=== PATIENT | female | born 1955 | race Caucasian/White ===

== ENCOUNTER → 2017-05-10 | Outpatient (CLI) | payer BC ==
--- NOTE | 2017-05-10 11:07 | US ---
HISTORY: Abdominal pain. Study: Complete abdominal ultrasound. Comparison: None. Technique: Multiple baptiste scale and color flow Doppler images of the abdomen were obtained. Findings: The liver is slightly echogenic in echotexture. No intraparenchymal mass or intrahepatic biliary elba rolan dilatation can be identified. The gallbladder is unremarkable in its appearance. The common jenni e duct is normal measuring 3 mm. The portal vein is patent with appropriate flow, as is the hepatic a rtery. Hepatic veins also appear patent. The visualized portions of the pancreas and spleen are lashonda l in their echotexture and size. The right and left kidney are normal in echotexture and size. The ri ght kidney measures 9 x 6 x 5 cm. The left kidney measures 9 x 6 x 5 cm. No mass, hydronephrosis, or stone can be identified. The visualized portions of the abdominal aorta are normal in size without an eurysmal dilatation. The inferior vena cava is unremarkable as well. No ascites or loculated abdomin al fluid collection is evident. IMPRESSION: Liver is slightly echogenic/fatty in appearance. Unremarkable gallbladder. No other abdominal sonographic abnormality is seen. No ascites is seen. Reported By:
== END ==
LOC: RAD 09:09
PROVIDERS: ATTEND Internal Medicine Gastroenterology
DX: R79.89 Other specified abnormal findings of blood chemistry (principal); R94.5 Abnormal results of liver function studies
CPT/HCPCS: 76700

== ENCOUNTER 2020-01-20 10:06 | Inpatient (IN) ==
[2020-01-20 10:19] VITALS: BMI 28.3
--- NOTE | 2020-01-20 10:49 | DR.DIZZY ---
HPI Time seen Time Seen by Provider: 01/20/20 10:22 PCP Primary Care Physician: LISHA Complaint Chief Complaint Doctor Comments: Patient chief complaint of diarrhea , achy and difficulty sleeping. Eating well and drinking but it goes straight through. Chief Complaint:: [facility] CALLED, PT WANTED TO COME TO [facility], INSTEAD OF [facility]. PT WAS TESTED POSITIVE LAST WEEK FOR COVID 19 POSITIVE. PT FAILED OUTPT TREATMENT AND PRESENTED BACK TO [facility] WITH TEMP OF 101.5, NAUSEA, DIARRHEA AND BODY ACHES. Self Treatment fo Chief Complaint: PT TOOK Z-PACK, DECADRON, ROCEPHIN IN OFFICE, MUCINEX, WITH SEVERAL BREATHING TX, Nurses Notes Reviewed Nurses Notes Review: Yes Source History Provided: Patient Mode of Arrival Mode of Arrival: Ambulatory Timing Onset of Chief Complaint: 01/15/20 Came on: Gradually Symptom Onset: Known Onset of Symptoms Start Date: 01/13/20 Duration Duration: Intermittent How lon Duration: Days Location of Weakness Weakness Location: Generalized Context History of: None Stroke Symptoms: None Severity Severity: Abnormal activity level Modifying factors Worsens: Nothing Associated signs and symptoms Associated Signs and Symptoms: Headache, Nausea and Other (diarrhea) PMH PMH Past Medical History: Yes Past Medical History: GERD and Hypertension Past Surgical History: Yes Surgical History: Hysterectomy and Other Past Surgical History Comment: BLADDER TACT Family History History of Family Medical Conditions: Yes Family Medical History: Sudden Cardiac Social History Does any household member use tobacco: No Alcohol Use: Occasionally Do you use any recreational Drugs:: No Lives With: Alone Lives Where: Home Infectious screening In the last 2 months have you had wt loss of >10#?: NO Have you had fever, night sweats or hemotysis?: No Have you traveled outside the country in the last 6 months?: No Isolation: Droplet ROS Review of Systems Constitutional: Fever and Weakness Eyes: No Symptoms Reported ENTM: No Symptoms Reported Respiratoy: No Symptoms Reported Gastrointestinal/Abdominal: Diarrhea and Nausea Genitourinary: No Symptoms Reported Neurological: No Symptoms Reported Musculoskeletal: Muscle Pain Integumentary: No Symptoms Reported Hematologic/Lymphatic: No Symptoms Reported Endocrine: No Symptoms Reported Psychiatric: Anxiety All Other Systems: Reviewed and Negative PE Vital Signs Vitals: Temperature 98.9 F Pulse Rate 79 Respiratory Rate 20 Blood Pressure 128/107 O2 Sat by Pulse Oximetry 95 General Limitations: No Limitations General Appearance: Alert and In No Apparent Distress Head Head Exam: Normal Inspection, Atraumatic and Normocephalic Eyes Eye exam: Normal Appearance and EOMI Pupils: Regular, Round: Bilateral Sclera/Conjunctival: Normal Inspection: Bilateral ENT ENT Exam: Normal Exam and Normal Oropharynx Neck Neck Exam: Normal Inspection, Full ROM and Trachea Midline Respiratory Respiratory Exam: Normal Lung Sounds Bilat Respiratory Exam: Bilateral: Clear to Auscultation Cardiovascular Cardiovascular Exam: Regular Rate Abdominal Exam Abdominal Exam: Normal Inspection and Normal Bowel Sounds Rectal Rectal Exam: Deferred Extremeties Extremities Exam: Normal Inspection and Full ROM Back Back Exam: Normal Inspection and Full ROM Neurologic Neurological Exam: Alert, Oriented X3, CN II-XII Intact and Normal Gait Patient Oriented To: Person, Place and Time Cranial Nerve Exam: EOM Function (II, III, IV, ): Normal Psychiatric Psychiatric Exam: Depressed Skin Skin Exam: Normal Color COURSE Consultation Called: 12:39 Call Returned: 12:45 Consultation Comments: case discussed with DR. Barrientos admit for Covid19 niesha tment and potassium replacement ROR Labs Reviewed Result Diagrams: 01/20/20 11:15 01/20/20 11:15 Laboratory: WBC 3.9 X10^3/uL (3.6-10.0) 01/20/20 11:15 RBC 4.68 X10^6/uL (3.5-5.4) 01/20/20 11:15 Hgb 14.1 g/dL (12.0-16.0) 01/20/20 11:15 Hct 40.7 % (36.0-47.0) 01/20/20 11:15 MCV 86.9 fL (80.0-100.0) 01/20/20 11:15 MCH 30.0 pg (27.0-34.0) 01/20/20 11:15 MCHC 34.6 g/dL (33.0-35.0) 01/20/20 11:15 RDW 13.4 % (11.6-16.5) 01/20/20 11:15 Plt Count 107 X10^3/uL (150.0-450.0) L 01/20/20 11:15 MPV 9.2 fL (7.4-11.0) 01/20/20 11:15 Neut % (Auto) 60.7 % (42.0-75.0) 01/20/20 11:15 Lymph % (Auto) 30.2 % (21.0-51.0) 01/20/20 11:15 [place] % (Auto) 8.9 % (0.0-13.0) 01/20/20 11:15 Eos % (Auto) 0.1 % (0.9-2.9) L 01/20/20 11:15 Baso % (Auto) 0.1 % (0.2-1.0) L 01/20/20 11:15 Neut # (Auto) 2.4 x10^3/uL (2.2-4.8) 01/20/20 11:15 Lymph # (Auto) 1.2 X10^3/uL (1.3-2.9) L 01/20/20 11:15 [place] # (Auto) 0.3 x10^3/uL (0.3-0.8) 01/20/20 11:15 Eos # (Auto) 0.0 x10^3/uL (0.0-0.2) 01/20/20 11:15 Baso # (Auto) 0.0 X10^3/uL (0.0-0.1) 01/20/20 11:15 Absolute Nucleated RBC 0.1 /100WBC 01/20/20 11:15 Sodium 137 mmol/L (136-145) 01/20/20 11:15 Corrected Sodium TNP 01/20/20 11:15 Potassium 2.8 mmol/L (3.5-5.1) L* 01/20/20 11:15 Chloride 100 mmol/L (98-107) 01/20/20 11:15 Carbon Dioxide 29.7 mmol/L (21-32) 01/20/20 11:15 BUN 12 mg/dL (7-18) 01/20/20 11:15 Creatinine 0.85 mg/dL (0.55-1.02) 01/20/20 11:15 Est GFR (MDRD) Af Amer > 60 (>60) 01/20/20 11:15 Est GFR (MDRD) Non-Af > 60 (>60) 01/20/20 11:15 Glucose 84 mg/dL (65-99) 01/20/20 11:15 Calcium 8.7 mg/dL (8.5-10.1) 01/20/20 11:15 Corrected Calcium TNP 01/20/20 11:15 Total Bilirubin 0.40 mg/dL (0.2-1.0) 01/20/20 11:15 AST 21 Units/L (15-37) 01/20/20 11:15 ALT 30 Units/L (12-78) 01/20/20 11:15 Alkaline Phosphatase 101 Units/L (46-116) 01/20/20 11:15 C-Reactive Protein 20.40 mg/L (0-3.0) H 01/20/20 11:15 Total Protein 7.2 g/dL (6.4-8.2) 01/20/20 11:15 Albumin 3.5 g/dL (3.4-5.0) 01/20/20 11:15 Globulin 3.7 g/dL (2.5-4.5) 01/20/20 11:15 Albumin/Globulin Ratio 0.9 Ratio (1.1-2.1) L 01/20/20 11:15 Lipase 184 Units/L (73-393) 01/20/20 11:15 Specimen Type Clean catch urine 01/20/20 11:00 Urine Color Yellow (YELLOW) 01/20/20 11:00 Urine Appearance Slightly hazy (CLEAR) 01/20/20 11:00 Urine pH 6.0 (5.0 - 8.0) 01/20/20 11:00 Ur Specific [place] 1.015 (1.000-1.030) 01/20/20 11:00 Urine Protein 1+ (NEGATIVE) 01/20/20 11:00 Urine Glucose (UA) Negative (NEGATIVE) 01/20/20 11:00 Urine Ketones Negative (NEGATIVE) 01/20/20 11:00 Urine Occult Blood 1+ (NEGATIVE) 01/20/20 11:00 Urine Nitrite Negative (NEGATIVE) 01/20/20 11:00 Urine Bilirubin Negative (NEGATIVE) 01/20/20 11:00 Urine Urobilinogen Normal (NORMAL) 01/20/20 11:00 Ur Leukocyte Esterase 1+ (NEGATIVE) 01/20/20 11:00 Urine RBC 0-2 /HPF (0-3) 01/20/20 11:00 Urine WBC 0-2 /HPF (0-5) 01/20/20 11:00 Ur Squamous Epith Cells Rare /HPF (NEGATIVE) 01/20/20 11:00 Ur Renal Epithelial Cell Few /HPF (NEGATIVE) 01/20/20 11:00 Amorphous Sediment Trace /HPF (NEGATIVE) 01/20/20 11:00 Urine Bacteria Trace /HPF (NEGATIVE) 01/20/20 11:00 Ur Culture Indicated? No/not indicated 01/20/20 11:00 Opioid Opioid Risk Tool Total: 0 Total Score Risk Category: Low Risk Copyright: [facility] predicting aberrant behaviors Diagnosis Discharge Problem: Pneumonia due to 2019 novel coronavirus
[2020-01-20] MEDS ORDERED: TORADOL 30 MG VIAL IVP ONE (10:51)
[2020-01-20] MEDS ORDERED: ZOFRAN INJ 4 MG VIAL ONE (10:59)
[2020-01-20] MEDS ORDERED: TORADOL 30 MG VIAL ONE (10:59)
[2020-01-20] MEDS ORDERED: NS 1000 ML 1,000 ML ONE (10:59)
[2020-01-20] MEDS ORDERED: NS 1000 ML 1,000 ML IV SCH (11:00)
[2020-01-20] MEDS: ZOFRAN INJ 4 MG VIAL IVP PRN ×2 (11:22→19:37)
[2020-01-20 11:48] LABS: BASOPHILS % (AUTO) 0.1 % (0.2-1.0); EOSINOPHILS % (AUTO) 0.1 % (0.9-2.9); HEMATOCRIT 40.7 % (36.0-47.0); HEMOGLOBIN 14.1 g/dL (12.0-16.0); LYMPHOCYTES # (AUTO) 1.2 X10^3/uL (1.3-2.9); LYMPHOCYTES % (AUTO) 30.2 % (21.0-51.0); MEAN CORPUSCULAR HGB CONC 34.6 g/dL (33.0-35.0); MEAN CORPUSCULAR VOLUME 86.9 fL (80.0-100.0); MEAN PLATELET VOLUME 9.2 fL (7.4-11.0); MONOCYTES # (AUTO) 0.3 x10^3/uL (0.3-0.8); MONOCYTES % (AUTO) 8.9 % (0.0-13.0); NEUTROPHILS # (AUTO) 2.4 x10^3/uL (2.2-4.8); NEUTROPHILS % (AUTO) 60.7 % (42.0-75.0); PLATELET COUNT 107 X10^3/uL (150.0-450.0); RED BLOOD COUNT 4.68 X10^6/uL (3.5-5.4); RED CELL DISTRIBUTION WIDTH 13.4 % (11.6-16.5); WHITE BLOOD COUNT 3.9 X10^3/uL (3.6-10.0)
[2020-01-20 11:56] LABS: BILIRUBIN,URINE NEGATIVE (NEGATIVE); BLOOD/HEMOGLOBIN,URINE 1+ (NEGATIVE); GLUCOSE, URINE NEGATIVE (NEGATIVE); KETONES,URINE NEGATIVE (NEGATIVE); LEUKOCYTE ESTERASE ,URINE 1+ (NEGATIVE); NITRITES,URINE NEGATIVE (NEGATIVE); PROTEIN,URINE 1+ (NEGATIVE); UROBILINOGEN,URINE NORMAL (NORMAL)
--- NOTE | 2020-01-20 11:56 | RAD ---
HISTORYCOVID +CP AND ABD PAIN PMH: HTN.br BLADDER MESH, MESH REMOVALSTUDYACUTE ABDOMEN SERIESCOMPARISONNoneFINDINGSThe trachea is midline. The cardiac silhouette is [unremarkable]. [The lungs demonstrate some hazy opacities throughout the peripheral aspects lung which may be due to history of COVID-19 without focal mass or consolidation. There is no effusion or pneumothorax.] [The bony thorax is unremarkable].Flat plate and upright evaluation of the abdomen demonstrates a [normal bowel gas pattern]. There is no pneumoperitoneum. No pathological soft tissue mass or calcification can be observed. The bony structures are grossly intact.IMPRESSION1. [Hazy peripheral opacities throughout both lungs which may be due to a COVID given the history.2. [No evidence for acute abdominal pathology identified.]Electronically signed by: GEOFF REAVES (Jan 20, 2020 11:54:26)
[2020-01-20 11:58] LABS: BLOOD UREA NITROGEN 12 mg/dL (7-18); CALCIUM 8.7 mg/dL (8.5-10.1); CARBON DIOXIDE 29.7 mmol/L (21-32); CHLORIDE 100 mmol/L (98-107); CREATININE 0.85 mg/dL (0.55-1.02); SODIUM 137 mmol/L (136-145); eGFR NON BLACK RACES > 60 (>60)
[2020-01-20 12:02] LABS: AMORPHOUS SEDIMENT,UR TRACE /HPF (NEGATIVE); APPEARANCE,URINE SLIGHTLY HAZY (CLEAR); BACTERIA,URINE TRACE /HPF (NEGATIVE); COLOR,URINE YELLOW (YELLOW); RBC,URINE 0-2 /HPF (0-3); RENAL EPITHELIAL CELLS,URINE FEW /HPF (NEGATIVE); SQUAMOUS EPITHELIAL CELL,UR RARE /HPF (NEGATIVE)
[2020-01-20 12:02] LABS: ALANINE AMINOTRANSFERASE 30 Units/L (12-78); ALBUMIN 3.5 g/dL (3.4-5.0); ALKALINE PHOSPHATASE 101 Units/L (46-116); ASPARTATE AMINO TRANSFERASE 21 Units/L (15-37); LIPASE 184 Units/L (73-393); TOTAL PROTEIN 7.2 g/dL (6.4-8.2)
[2020-01-20] MEDS ORDERED: K-RIDER 10 MEQ/NS 100 ML 10 MEQ/100 ML BAG IV ONE ×2 (12:13→12:19)
[2020-01-20] MEDS ORDERED: POTASSIUM CHLORIDE LIQ 20 MEQ UDC PO ONE (12:13)
[2020-01-20] MEDS ORDERED: KLOR-CON ONE (12:18)
[2020-01-20] MEDS ORDERED: KLOR-CON PO ONE (12:36)
[2020-01-20] MEDS ORDERED: REMDESIVIR 200 MG in NS 250 ML IV 250 ML IV SCH ×2 (14:00→19:00)
[2020-01-20] MEDS: ZINC SULFATE PO SCH ×2 (16:00→20:33)
[2020-01-20] MEDS: TRICOR TAB 160 MG PO SCH (16:00)
[2020-01-20] MEDS: VITAMIN D (1.25MG) PO SCH (16:00)
[2020-01-20] MEDS: PLAQUENIL PO SCH ×2 (16:00→20:33)
[2020-01-20] MEDS: ASCORBIC ACID INJ MULTI-DOSE VIAL 1,500 MG in NS 100 ML IV 100 ML IV SCH ×3 (16:00→21:13)
[2020-01-20] MEDS: DECADRON TAB PO SCH (16:00)
[2020-01-20] MEDS: VITAMIN A PO SCH (16:00)
[2020-01-20] MEDS: LOVENOX INJ 30 MG SYR SC SCH ×2 (16:12→20:33)
[2020-01-20] MEDS: NS 1000 ML 1,000 ML IV SCH (16:14)
[2020-01-20] MEDS: PROVENTIL NEB TX 0.083% 2.5MG/ 3ML NEB SCH ×2 (16:55→20:30)
--- NOTE | 2020-01-20 18:51 | DR.H&P ---
H&P - History & Physical for Day of: H&P Date: 01/20/20 - Chief Complaint Chief Complaint: COVID 19+, WEAKNESS, DIARRHEA - History of Present Illness History of Present Illness: PT IS 64F ADMITTED WITH COVID 19 PNEUMONIA AND COMPLICATION OF DEHYDRATION AND DIARRHEA. PT HAD PNEUMONIA ON ER CXR. PT HAD PMH OF HYPERTENSION. PT ADMITTED FOR TREATMENT OF ACUTE ILLNESS, ICU ISOLATION. - Past Medical History Past Medical History: Hypertension, GERD - Past Surgical History Surgical History: [employer] Surgery, Hysterectomy, Other - Family History Family Medical History: Cancer, DC, Heart Failure, Hypertension - Social History Does patient currently use any type of tobacco product: No Have you used tobacco products in the last 12 months: No Type of Tobacco Use: None Does any household member use tobacco: No Alcohol Use: None Drug Use: Prescription Drugs - Medications Home Medications: metoclopramide [From Reglan] Allergy (Verified 01/20/20 10:19) CONTINUE taking the following medications albuterol sulfate 2 inh INHALATION Q4HHR 01/20/20 [History] benzonatate 200 mg PO TID 01/20/20 [History] budesonide [Pulmicort Flexhaler] 1 inh INHALATION BID 01/20/20 [History] dexamethasone 6 mg PO DAILY 01/20/20 [History] hydrochlorothiazide 25 mg PO DAILY 01/20/20 [History] lansoprazole 30 mg PO DAILY 01/20/20 [History] losartan 100 mg PO DAILY 01/20/20 [History] ondansetron 4 mg PO QID PRN 01/20/20 [History] potassium chloride 10 meq PO DAILY 01/20/20 [History] zolpidem 10 mg PO HS PRN 01/20/20 [History] - Review of Systems Constitutional: Fever, Weakness, Malaise Eyes: No Symptoms Reported ENT: No Symptoms Reported Respiratory: SOB with Excertion Cardiovascular: No Symptoms Reported Gastrointestinal: Nausea, Vomiting, Diarrhea Genitourinary: No Symptoms Reported Musculoskeletal: Back Pain Skin: No Symptoms Reported Neurological: Weakness - Physical Exam Vital Signs: Temperature 100.3 F Pulse Rate [Right] 72 Pulse Rate 69 Respiratory Rate 20 Blood Pressure [Right Arm] 148/72 Blood Pressure 147/77 O2 Sat by Pulse Oximetry 98 Oriented: Normal Eyes: Normal Ear: Normal Nose: Normal Throat: Normal Respiratory: RLL Diminished, LLL Diminished Cardiovascular: Normal : Normal Auscultation: Bowel Sounds: Normal Palpation: Normal Tenderness: Normal Skin: Decreased Turgur Musculoskeletal: Back:Lumbar Psychiatric: Anxiety Affect: Anxious Speech Pattern: Clear, Appropriate - Assessment/Plan (1) Pneumonia due to 2019 novel coronavirus Status: Acute Plan: ADMIT, COVID 19 ISOLATION. IV HYDRATION, BC AND SPUTUM CULTURE ON ADMISSION. CXR, ABG ON ADMISSION. VERIFY HOME MEDICATION, RESP THERAPY. CARDIAC MONITORING, IV ABTX, IV REMDESIVIR (2) Dehydration Status: Acute (3) Hypertension Status: Acute - Allergies Allergies/Adverse Reactions: Allergies Allergy/AdvReac Type Severity Reaction Status Date / Time metoclopramide [From Reglan] Allergy Verified 01/20/20 10:19
[2020-01-20] MEDS ORDERED: POTASSIUM CHLORIDE LIQ 20 MEQ UDC PO PRN (18:56)
[2020-01-20] MEDS ORDERED: K-RIDER 10 MEQ/NS 100 ML 10 MEQ/100 ML BAG IV PRN (18:56)
[2020-01-20] MEDS ORDERED: POTASSIUM CHL 60 MEQ/NS 0.45% 500 ML IV PRN (18:56)
[2020-01-20] MEDS ORDERED: POTASSIUM CHL 40 MEQ/NS 0.45% 500 ML IV PRN (18:56)
[2020-01-20] MEDS ORDERED: KLOR-CON PO PRN (18:56)
[2020-01-20] MEDS ORDERED: MICRO K EXTEN CAP 10 MEQ PO PRN (18:56)
[2020-01-20] MEDS ORDERED: ZOFRAN INJ 4 MG VIAL IVP PRN (19:08)
[2020-01-20] MEDS: TYLENOL 325 MG TAB PO PRN (19:09)
[2020-01-20] MEDS: ZOSYN VIAL 3.375 GRAMS 3.375 G in NS 100 ML IV + SPIKE MINIBAG* 100 ML IV SCH ×2 (19:37→21:13)
[2020-01-20] MEDS: ZITHROMAX INJ 500 MG VIAL 500 MG in NS 250 ML IV 250 ML IV SCH (19:37)
[2020-01-20 20:23] LABS: ABG BASE EXCESS -1.6 mmol/L (-2.0-2.0); ABG HCO3 21.1 mmol/L (22-26)
[2020-01-20] MEDS: PULMICORT NEB TX 0.5 MG NEB SCH (20:30)
[2020-01-20] MEDS: K-DUR TAB 20 MEQ PO PRN (21:13)
[2020-01-21] MEDS: ASCORBIC ACID INJ MULTI-DOSE VIAL 1,500 MG in NS 100 ML IV 100 ML IV SCH ×4 (03:17→21:00)
[2020-01-21] MEDS: ZOSYN VIAL 3.375 GRAMS 3.375 G in NS 100 ML IV + SPIKE MINIBAG* 100 ML IV SCH ×3 (05:47→22:00)
[2020-01-21 06:09] LABS: BASOPHILS % (AUTO) 0.1 % (0.2-1.0); HEMATOCRIT 38.1 % (36.0-47.0); HEMOGLOBIN 13.3 g/dL (12.0-16.0); LYMPHOCYTES # (AUTO) 0.5 X10^3/uL (1.3-2.9); LYMPHOCYTES % (AUTO) 17.8 % (21.0-51.0); MEAN CORPUSCULAR HEMOGLOBIN 30.5 pg (27.0-34.0); MEAN CORPUSCULAR HGB CONC 34.8 g/dL (33.0-35.0); MEAN CORPUSCULAR VOLUME 87.6 fL (80.0-100.0); MEAN PLATELET VOLUME 8.8 fL (7.4-11.0); MONOCYTES # (AUTO) 0.2 x10^3/uL (0.3-0.8); MONOCYTES % (AUTO) 7.8 % (0.0-13.0); NEUTROPHILS # (AUTO) 1.9 x10^3/uL (2.2-4.8); NEUTROPHILS % (AUTO) 74.3 % (42.0-75.0); PLATELET COUNT 101 X10^3/uL (150.0-450.0); RED BLOOD COUNT 4.35 X10^6/uL (3.5-5.4); RED CELL DISTRIBUTION WIDTH 13.4 % (11.6-16.5); WHITE BLOOD COUNT 2.6 X10^3/uL (3.6-10.0)
[2020-01-21 06:32] LABS: ALANINE AMINOTRANSFERASE 35 Units/L (12-78); ALBUMIN 3.1 g/dL (3.4-5.0); ALKALINE PHOSPHATASE 98 Units/L (46-116); ASPARTATE AMINO TRANSFERASE 28 Units/L (15-37); BLOOD UREA NITROGEN 11 mg/dL (7-18); CALCIUM 8.7 mg/dL (8.5-10.1); CARBON DIOXIDE 24.2 mmol/L (21-32); CHLORIDE 106 mmol/L (98-107); COR CA(FOR HYPOALB) 9.4 mg/dL (8.5-10.1); COR NA(FOR HYPERGLY) 142 mmol/L (136-145); CREATININE 0.71 mg/dL (0.55-1.02); SODIUM 142 mmol/L (136-145); TOTAL PROTEIN 6.8 g/dL (6.4-8.2); eGFR NON BLACK RACES > 60 (>60)
[2020-01-21] MEDS: TYLENOL 325 MG TAB PO PRN (08:00)
[2020-01-21] MEDS: PULMICORT NEB TX 0.5 MG NEB SCH ×2 (08:15→21:10)
[2020-01-21] MEDS: PROVENTIL NEB TX 0.083% 2.5MG/ 3ML NEB SCH ×4 (08:15→21:10)
[2020-01-21] MEDS: ZOFRAN INJ 4 MG VIAL IVP PRN (08:24)
[2020-01-21] MEDS: PLAQUENIL PO SCH ×2 (08:24→21:59)
[2020-01-21] MEDS: DECADRON TAB PO SCH (08:24)
[2020-01-21] MEDS: TRICOR TAB 160 MG PO SCH (08:25)
[2020-01-21] MEDS: VITAMIN A PO SCH (08:26)
[2020-01-21] MEDS: VITAMIN D (1.25MG) PO SCH (08:26)
[2020-01-21] MEDS: LOVENOX INJ 30 MG SYR SC SCH ×2 (08:27→21:59)
[2020-01-21] MEDS: ZINC SULFATE PO SCH ×2 (08:39→21:59)
[2020-01-21] MEDS ORDERED: REMDESIVIR 100 MG in NS 250 ML IV 250 ML IV SCH (09:00)
[2020-01-21] MEDS: REMDESIVIR 100 MG in NS 250 ML IV 250 ML IV SCH (09:51)
[2020-01-21] MEDS: ZITHROMAX INJ 500 MG VIAL 500 MG in NS 250 ML IV 250 ML IV SCH (11:21)
--- NOTE | 2020-01-21 11:27 | RAD ---
HISTORYCOVID PNEUMONIASTUDYCHEST, 1 [id number] trachea is midline. Normal heart size. There is again seen some areas of increase of the interstitial markings in the left base and in the left midlung zone. No new dominant infiltrate in the right. No effusions. No evidence of pneumothorax.IMPRESSIONNo interval change. Stable patchy increase of the interstitial markings in the left lower lobe and left midlung zones suspicious for viral pneumonia.Electronically signed by: Naomi Montalvo (Jan 21, 2020 11:26:21)
[2020-01-21] MEDS: LOMOTIL PO PRN ×2 (11:29→21:00)
[2020-01-21] MEDS: NS 1000 ML 1,000 ML IV SCH (14:12)
[2020-01-21] MEDS ORDERED: ROBITUSSIN DM PO PRN (19:04)
[2020-01-21] MEDS ORDERED: TUSSIONEX PENNKINETIC SUSP PO PRN (19:04)
[2020-01-22] MEDS: ASCORBIC ACID INJ MULTI-DOSE VIAL 1,500 MG in NS 100 ML IV 100 ML IV SCH ×4 (03:00→21:00)
[2020-01-22 05:40] LABS: BASOPHILS % (AUTO) 0.1 % (0.2-1.0); HEMATOCRIT 37.2 % (36.0-47.0); HEMOGLOBIN 12.5 g/dL (12.0-16.0); LYMPHOCYTES # (AUTO) 0.8 X10^3/uL (1.3-2.9); LYMPHOCYTES % (AUTO) 20.7 % (21.0-51.0); MEAN CORPUSCULAR HEMOGLOBIN 30.2 pg (27.0-34.0); MEAN CORPUSCULAR HGB CONC 33.7 g/dL (33.0-35.0); MEAN CORPUSCULAR VOLUME 89.5 fL (80.0-100.0); MEAN PLATELET VOLUME 9.6 fL (7.4-11.0); MONOCYTES # (AUTO) 0.4 x10^3/uL (0.3-0.8); MONOCYTES % (AUTO) 9.4 % (0.0-13.0); NEUTROPHILS # (AUTO) 2.7 x10^3/uL (2.2-4.8); NEUTROPHILS % (AUTO) 69.8 % (42.0-75.0); PLATELET COUNT 103 X10^3/uL (150.0-450.0); RED BLOOD COUNT 4.15 X10^6/uL (3.5-5.4); RED CELL DISTRIBUTION WIDTH 13.5 % (11.6-16.5); WHITE BLOOD COUNT 3.9 X10^3/uL (3.6-10.0)
[2020-01-22] MEDS: ZOSYN VIAL 3.375 GRAMS 3.375 G in NS 100 ML IV + SPIKE MINIBAG* 100 ML IV SCH ×3 (05:54→22:00)
[2020-01-22 05:58] LABS: ALANINE AMINOTRANSFERASE 29 Units/L (12-78); ALBUMIN 2.7 g/dL (3.4-5.0); ALKALINE PHOSPHATASE 81 Units/L (46-116); ASPARTATE AMINO TRANSFERASE 23 Units/L (15-37); BLOOD UREA NITROGEN 11 mg/dL (7-18); CALCIUM 8.5 mg/dL (8.5-10.1); CARBON DIOXIDE 24.6 mmol/L (21-32); CHLORIDE 108 mmol/L (98-107); COR CA(FOR HYPOALB) 9.5 mg/dL (8.5-10.1); CREATININE 0.83 mg/dL (0.55-1.02); SODIUM 144 mmol/L (136-145); TOTAL PROTEIN 5.9 g/dL (6.4-8.2); eGFR NON BLACK RACES > 60 (>60)
[2020-01-22] MEDS: REMDESIVIR 100 MG in NS 250 ML IV 250 ML IV SCH (09:00)
[2020-01-22] MEDS: VITAMIN A PO SCH (09:00)
[2020-01-22] MEDS: VITAMIN D3 125 mcg (5,000 UNITS) PO SCH (09:00)
[2020-01-22] MEDS: TRICOR TAB 160 MG PO SCH (09:00)
[2020-01-22] MEDS: ZINC SULFATE PO SCH ×2 (09:00→21:00)
[2020-01-22] MEDS: DECADRON TAB PO SCH (09:00)
[2020-01-22] MEDS: PLAQUENIL PO SCH ×2 (09:00→21:30)
[2020-01-22] MEDS: LOMOTIL PO PRN (09:00)
[2020-01-22] MEDS: PULMICORT NEB TX 0.5 MG NEB SCH ×2 (09:45→21:16)
[2020-01-22] MEDS: PROVENTIL NEB TX 0.083% 2.5MG/ 3ML NEB SCH (09:45)
[2020-01-22] MEDS: LOVENOX INJ 30 MG SYR SC SCH (10:25)
[2020-01-22] MEDS ORDERED: DUONEB 0.5 MG/3 MG (3 mL) NEB ONE (11:46)
[2020-01-22] MEDS: DUONEB 0.5 MG/3 MG (3 mL) NEB SCH ×3 (12:05→21:16)
[2020-01-22] MEDS: NS 1000 ML 1,000 ML IV SCH (14:20)
[2020-01-22] MEDS: SOLU-Medrol 40 MG VIAL IVP SCH ×2 (14:20→21:00)
[2020-01-22] MEDS ORDERED: MAALOX or MYLANTA PO PRN (20:48)
[2020-01-22] MEDS ORDERED: COLACE CAP 100 MG PO ONE (21:12)
[2020-01-22] MEDS ORDERED: MAALOX or MYLANTA ONE (21:13)
[2020-01-22] MEDS: COLACE CAP 100 MG PO PRN (21:30)
[2020-01-23] MEDS: DUONEB 0.5 MG/3 MG (3 mL) NEB SCH ×5 (00:25→17:25)
[2020-01-23] MEDS: LOVENOX INJ 30 MG SYR SC SCH ×3 (01:43→21:37)
[2020-01-23] MEDS: ASCORBIC ACID INJ MULTI-DOSE VIAL 1,500 MG in NS 100 ML IV 100 ML IV SCH ×4 (03:45→21:36)
[2020-01-23 05:15] LABS: BASOPHILS % (AUTO) 0.1 % (0.2-1.0); HEMATOCRIT 38.6 % (36.0-47.0); HEMOGLOBIN 12.9 g/dL (12.0-16.0); LYMPHOCYTES # (AUTO) 0.5 X10^3/uL (1.3-2.9); LYMPHOCYTES % (AUTO) 12.7 % (21.0-51.0); MEAN CORPUSCULAR HEMOGLOBIN 29.8 pg (27.0-34.0); MEAN CORPUSCULAR HGB CONC 33.5 g/dL (33.0-35.0); MEAN CORPUSCULAR VOLUME 88.9 fL (80.0-100.0); MEAN PLATELET VOLUME 9.4 fL (7.4-11.0); MONOCYTES # (AUTO) 0.2 x10^3/uL (0.3-0.8); MONOCYTES % (AUTO) 5.3 % (0.0-13.0); NEUTROPHILS # (AUTO) 3.2 x10^3/uL (2.2-4.8); NEUTROPHILS % (AUTO) 81.9 % (42.0-75.0); PLATELET COUNT 127 X10^3/uL (150.0-450.0); RED BLOOD COUNT 4.34 X10^6/uL (3.5-5.4); RED CELL DISTRIBUTION WIDTH 13.2 % (11.6-16.5); WHITE BLOOD COUNT 3.9 X10^3/uL (3.6-10.0)
[2020-01-23 05:35] LABS: ALANINE AMINOTRANSFERASE 22 Units/L (12-78); ALBUMIN 2.8 g/dL (3.4-5.0); ALKALINE PHOSPHATASE 82 Units/L (46-116); ASPARTATE AMINO TRANSFERASE 22 Units/L (15-37); BLOOD UREA NITROGEN 9 mg/dL (7-18); CALCIUM 8.9 mg/dL (8.5-10.1); CARBON DIOXIDE 25.7 mmol/L (21-32); CHLORIDE 105 mmol/L (98-107); COR CA(FOR HYPOALB) 9.9 mg/dL (8.5-10.1); COR NA(FOR HYPERGLY) 144 mmol/L (136-145); CREATININE 0.81 mg/dL (0.55-1.02); SODIUM 143 mmol/L (136-145); TOTAL PROTEIN 6.3 g/dL (6.4-8.2); eGFR NON BLACK RACES > 60 (>60)
[2020-01-23] MEDS: SOLU-Medrol 40 MG VIAL IVP SCH ×3 (05:44→21:36)
[2020-01-23] MEDS: ZOSYN VIAL 3.375 GRAMS 3.375 G in NS 100 ML IV + SPIKE MINIBAG* 100 ML IV SCH ×3 (05:44→21:36)
--- NOTE | 2020-01-23 06:14 | RAD ---
HISTORYPNEUMONIASTUDYCHEST, 1 [id number] view of the chestFINDINGSCardiac and mediastinal contours appear normal. Worsened bilateral scattered interstitial opacities. No pleural effusion or pneumothorax.IMPRESSIONWorsened interstitial opacities consistent with worsening pneumonia.Electronically signed by: Truman Boyce (Jan 23, 2020 06:13:12)
[2020-01-23] MEDS: PLAQUENIL PO SCH ×2 (08:50→21:36)
[2020-01-23] MEDS: VITAMIN A PO SCH (08:51)
[2020-01-23] MEDS: REMDESIVIR 100 MG in NS 250 ML IV 250 ML IV SCH (08:51)
[2020-01-23] MEDS: TRICOR TAB 160 MG PO SCH (08:51)
[2020-01-23] MEDS: ZINC SULFATE PO SCH ×2 (08:53→21:36)
[2020-01-23] MEDS: VITAMIN D3 125 mcg (5,000 UNITS) PO SCH (08:53)
[2020-01-23] MEDS: K-DUR TAB 20 MEQ PO PRN (08:55)
[2020-01-23] MEDS: PULMICORT NEB TX 0.5 MG NEB SCH ×2 (09:45→21:05)
[2020-01-23] MEDS: LEVAQUIN PREMIX IV 500 MG 500 MG/100 ML BAG IV SCH (09:55)
[2020-01-23] MEDS: PROTONIX INJ 40 MG VIAL IVP SCH (10:15)
[2020-01-23] MEDS: LEVSIN/MAALOX/LIDOC VISC PO PRN ×2 (10:26→21:37)
[2020-01-23] MEDS: TYLENOL 325 MG TAB PO PRN ×2 (10:32→18:15)
[2020-01-23 11:29] LABS: ABG BASE EXCESS 5.4 mmol/L (-2.0-2.0)
[2020-01-23] MEDS: NS 1000 ML 1,000 ML IV SCH (14:30)
[2020-01-23] MEDS ORDERED: KLOR-CON PO PRN (18:14)
[2020-01-23] MEDS ORDERED: RESTORIL CAP 15 MG PO PRN (19:55)
[2020-01-23] MEDS: XOPENEX 1.25 MG/3 ML NEBULE NEB SCH (21:05)
[2020-01-23] MEDS: COLACE CAP 100 MG PO PRN (21:30)
[2020-01-24] MEDS: ASCORBIC ACID INJ MULTI-DOSE VIAL 1,500 MG in NS 100 ML IV 100 ML IV SCH ×3 (03:59→14:55)
[2020-01-24 05:03] LABS: BASOPHILS % (AUTO) 0.1 % (0.2-1.0); HEMATOCRIT 38.8 % (36.0-47.0); LYMPHOCYTES # (AUTO) 0.6 X10^3/uL (1.3-2.9); LYMPHOCYTES % (AUTO) 12.7 % (21.0-51.0); MEAN CORPUSCULAR HEMOGLOBIN 29.8 pg (27.0-34.0); MEAN CORPUSCULAR HGB CONC 33.5 g/dL (33.0-35.0); MEAN CORPUSCULAR VOLUME 88.7 fL (80.0-100.0); MEAN PLATELET VOLUME 9.1 fL (7.4-11.0); MONOCYTES # (AUTO) 0.4 x10^3/uL (0.3-0.8); MONOCYTES % (AUTO) 7.2 % (0.0-13.0); NEUTROPHILS # (AUTO) 4.1 x10^3/uL (2.2-4.8); PLATELET COUNT 133 X10^3/uL (150.0-450.0); RED BLOOD COUNT 4.38 X10^6/uL (3.5-5.4); RED CELL DISTRIBUTION WIDTH 13.4 % (11.6-16.5); WHITE BLOOD COUNT 5.1 X10^3/uL (3.6-10.0)
[2020-01-24 05:08] LABS: ALANINE AMINOTRANSFERASE 20 Units/L (12-78); ALBUMIN 2.5 g/dL (3.4-5.0); ALKALINE PHOSPHATASE 77 Units/L (46-116); ASPARTATE AMINO TRANSFERASE 17 Units/L (15-37); BLOOD UREA NITROGEN 17 mg/dL (7-18); CALCIUM 8.7 mg/dL (8.5-10.1); CARBON DIOXIDE 30.1 mmol/L (21-32); CHLORIDE 104 mmol/L (98-107); COR CA(FOR HYPOALB) 9.9 mg/dL (8.5-10.1); COR NA(FOR HYPERGLY) 141 mmol/L (136-145); CREATININE 0.81 mg/dL (0.55-1.02); SODIUM 140 mmol/L (136-145); eGFR NON BLACK RACES > 60 (>60)
[2020-01-24] MEDS: SOLU-Medrol 40 MG VIAL IVP SCH ×2 (05:09→14:54)
[2020-01-24] MEDS: ZOSYN VIAL 3.375 GRAMS 3.375 G in NS 100 ML IV + SPIKE MINIBAG* 100 ML IV SCH (05:09)
--- NOTE | 2020-01-24 06:13 | RAD ---
[id number], 1 VIEWCOMPARISONOne day priorTECHNIQUEAP view of the chestFINDINGSCardiac and mediastinal contours are within normal limits. Similar appearance of scattered bilateral interstitial opacities worse in the peripheral right upper lung and left peripheral mid lung. No pleural effusion or pneumothorax.IMPRESSIONNo significant change.Electronically signed by: Truman Boyce (Jan 24, 2020 06:11:55)
[2020-01-24] MEDS: XOPENEX 1.25 MG/3 ML NEBULE NEB SCH ×2 (06:27→14:20)
[2020-01-24] MEDS: LOVENOX INJ 30 MG SYR SC SCH (09:02)
[2020-01-24] MEDS: LEVAQUIN PREMIX IV 500 MG 500 MG/100 ML BAG IV SCH (09:02)
[2020-01-24] MEDS: VITAMIN A PO SCH (09:03)
[2020-01-24] MEDS: REMDESIVIR 100 MG in NS 250 ML IV 250 ML IV SCH (09:03)
[2020-01-24] MEDS: TRICOR TAB 160 MG PO SCH (09:03)
[2020-01-24] MEDS: PLAQUENIL PO SCH (09:03)
[2020-01-24] MEDS: PROTONIX INJ 40 MG VIAL IVP SCH (09:03)
[2020-01-24] MEDS: ZINC SULFATE PO SCH (09:04)
[2020-01-24] MEDS: VITAMIN D3 125 mcg (5,000 UNITS) PO SCH (09:04)
[2020-01-24] MEDS: PULMICORT NEB TX 0.5 MG NEB SCH (09:20)
[2020-01-24] MEDS: TYLENOL 325 MG TAB PO PRN (09:31)
[2020-01-24 12:47] VITALS: BP 138/77
[2020-01-24 14:27] LABS: ABG BASE EXCESS 7.6 mmol/L (-2.0-2.0)
[2020-01-24] MEDS: NS 1000 ML 1,000 ML IV SCH (14:54)
== END 2020-01-24 15:33 | disposition home or self-care (01) | DRG 177 ==
LOC: ICU 10:11 → ER 10:11 → OBSVTOIN 12:48 → ICU 14:44
PROVIDERS: ADMIT Internal Medicine; ATTEND Internal Medicine
DX: I10 Essential (primary) hypertension; A08.39 Other viral enteritis; R51.9 Headache, unspecified; J12.89 Other viral pneumonia; R50.9 Fever, unspecified; U07.1 COVID-19; E86.0 Dehydration; K21.9 Gastro-esophageal reflux disease without esophagitis; E11.65 Type 2 diabetes mellitus with hyperglycemia; R79.82 Elevated C-reactive protein (CRP)